=== PATIENT | female | born 1960 | race Two or more races ===

== ENCOUNTER → 2016-11-26 | Day surgery (SDC) | payer BC ==
[~2016-11-26] MED LIST: AMLO10TA2 PO; CYCL10TA2 PO; HYDR25TA9 PO; HYDROmorphone 2 MG/ML VIAL IV PRN; IV RINGERS,LACTATED 1000ML 1,000 ML IV SCH; LIDOCAINE 1% 1 ML SYRINGE. ID PRN; LIDOCAINE 2% PF Vial for OR 5 ML VIAL. ONE; LISI40TA PO; METO25TA9 PO; MORPHINE SULFATE 2 MG/ML DISP.SYRIN. IV PRN; ONDANSETRON PF 4 MG/2 ML VIAL. IV PRN; PROCHLORPERAZINE 10 MG/2 ML VIAL. IV PRN; PROPOFOL 20 ML IV ONE; PROPOFOL 40 ML IV ONE; fentaNYL PF VIAL 100 MCG/2 ML VIAL IV PRN
--- NOTE | 2016-11-26 13:45 | PDOC1 ---
History and Physical Date of Admission Date of Admission DATE: 11/26/16 TIME: 13:40 Source Source: Chart review, Patient History of Present Illness History of Present Illness 56 y/o female here for CRC screening and evaluation of bloating. Does have FH of gastric cancer in multiple family members (3 cousins and grandfather). No other symptoms. Past Medical History Cardiovascular: HTN Past Surgical History Past Surgical History none Family History Family History: Cancer, Coronary Artery Disease, Diabetes, Hypertension Social History Smoke: No ALCOHOL: none Drugs: None Current Medications Current Medications Current Medications Lactated Ringer's 1,000 ml @ 50 mls/hr Q20H IV ; Start 07/20/16 at 17:13; Stop 07/21/16 at 05:12; Status UNV Lactated Ringer's 1,000 ml @ 50 mls/hr Q20H IV ; Start 07/20/16 at 17:13; Stop 07/21/16 at 05:12; Status UNV Ondansetron HCl (Zofran) 4 mg PRN Q6HRS PRN IV NAUSEA/VOMITING; Start 11/26/16 at 13:00; Stop 11/26/16 at 18:00 Fentanyl Citrate (Fentanyl 2ml Vial) 25 mcg PRN Q5MIN PRN IV MILD PAIN; Start 11/26/16 at 13:00; Stop 11/26/16 at 18:00 Fentanyl Citrate (Fentanyl 2ml Vial) 50 mcg PRN Q5MIN PRN IV MODERATE PAIN; Start 11/26/16 at 13:00; Stop 11/26/16 at 18:00 Morphine Sulfate 1 mg PRN Q10MIN PRN IV SEVERE PAIN; Start 11/26/16 at 13:00; Stop 11/26/16 at 18:00 Ringer's Solution 1,000 ml @ 30 mls/hr Q24H IV ; Start 11/26/16 at 12:59; Stop 11/27/16 at 00:58 Lidocaine HCl 2 ml PRN 1X PRN ID PRIOR TO IV START; Start 11/26/16 at 13:00; Stop 11/26/16 at 18:00 Hydromorphone HCl (Dilaudid) 0.5 mg PRN Q10MIN PRN IV SEV PAIN, Second choice; Start 11/26/16 at 13:00; Stop 11/26/16 at 18:00 Prochlorperazine Edisylate (Compazine) 5 mg PACU PRN PRN IV NAUSEA, MRX1; Start 11/26/16 at 13:00; Stop 11/26/16 at 18:00 Ringer's Solution 1,000 ml @ 75 mls/hr [id number] IV ; Start 11/26/16 at 13:15; Stop 11/27/16 at 13:14 Allergies Allergies: Coded Allergies: No Known Drug Allergies (Unverified , 11/26/16) ROS Review of System Otherwise negative. Physical Exam General: Alert, Oriented X3, Cooperative, No acute distress Lungs: Clear to auscultation Heart: S1S2, RRR, no gallops, no murmurs Abdomen: Normal bowel sounds, Soft, No tenderness, No hepatosplenomegaly, No masses Rectal Exam: deferred (to procedure) Extremities: No cyanosis, No edema Skin: No significant lesion Neuro: Normal speech, Strength at 5/5 X4 ext, Normal tone, Sensation intact, Cranial nerves 3-12 NL, Reflexes 2+ Psych/Mental Status: Mental status NL, Mood NL VTE Prophylaxis Ordered VTE Prophylaxis Devices: No VTE Pharmacological Prophylaxi: No Assessment/Plan Assessment/Plan IMP: 1. CRC screening 2. Non-specific bloating/FH gastric cancer in several relatives. PLAN: EGD and colonoscopy. Other pending. MEMO REYNOLDS MD Nov 26, 2016 13:45
--- NOTE | 2016-11-26 14:39 | PDOC4 ---
PROCEDURE Procedure Colon/EGD Indications: Screening/dyspepsia, FH gastric cancer Meds: per anesthesia Findings: ANNITA: normal Mucosa normal to cecum. 2 3-4 mm polyps, mid to distal transverse, biopsied off. Third 3mm polyp, distal descending, likewise removed. IH's on retroflex. E--Less than grade I at 37cm G--Tiny , 3-4 mm, in mid antrum, greater curve. biopsies from antrum. Few pre-pyloric erosions. D--Several shallow erosions, bulb. Second portion OK. Shay. well. IMP: colon polyps Mild reflux Tiny Prepyloric erosions Duodenal erosions. PLAN: 1. Resume home meds, diet. 2. Prilosec OTC or equivalent daily. 3. Await path. 4. F/u office 2 weeks. 5. Repeat any procedures based on path. MEMO REYNOLDS MD Nov 26, 2016 14:39
[2016-11-26 15:25] VITALS: BP 110/70
--- NOTE | 2016-11-27 15:06 | PATHOLOGY ---
PATHOLOGY REPORT * * * * * * * * FINAL DIAGNOSIS: A. Gastric biopsies, antrum: - Chronic gastritis, mild to moderate. B. Colon biopsies, transverse colon polyp: - Tubular adenoma. - Mucosal-associated lymphoid aggregate. C. Colon biopsies, descending colon polyp: - Tubular adenoma. COMMENT: Sections of the gastric biopsy reveal segments of gastric body and gastric antral mucosa. The gastric body mucosa shows mild superficial chronic inflammation. The gastric antral mucosa shows mild to moderate chronic inflammation. An immunoperoxidase stain for Helicobacter is obtained. No Helicobacter organisms are identified. Sections of the transverse colon and descending colon biopsies reveal tubular adenomas showing no high-grade dysplasia or evidence of malignancy. (JPM:mgr; d/t: 11/27/2016) Special Stain Performed: Immunoperoxidase stain for Helicobacter (A1) REPORT ELECTRONICALLY SIGNED BY: Sergio Holly M.D. DATE/TIME: 11/27/2016 15:06 * * * * * * * * GROSS PATHOLOGY: A. Received in formalin labeled "Anette Schumacher, antral biopsy, r/o H. pylori" are multiple segments of powell soft tissue measuring from 0.1 up to 0.4 cm in maximum dimension. The specimen is submitted entirely in cassette A1. B. Received in formalin labeled "transverse colon polyp," are 4 segments of powell soft tissue measuring from less than 0.1 up to 0.3 cm in maximum dimension. The specimen is submitted entirely in cassette B1. C. Received in formalin labeled "descending colon polyp," are multiple segments of powell soft tissue measuring from 0.1 up to 0.3 cm in maximum dimension. The specimen is submitted entirely in cassette C1. (JPM; 11/26/16) INITIAL CPT CODE(S): A; 76082, 36556 B; 90414 C; 95496 Professional services performed by [facility] at [facility] [address] [place] [address] Technical services performed by [facility] at [address] [place] [address], [address], [place] [address]. SPECIMEN(S) RECEIVED: A.Antral biopsy, r/o H. Pylori B.Transverse colon polyp C.Descending colon polyp CLINICAL HISTORY: Dyspepsia, CRCS PATIENT: ANETTE SCHUMACHER /AGE: 611/24/1960 (Age: 56) PATIENT #: [id number] ALT CASE #: SPECIMEN COLLECTION DATE: 11/26/2016 SPECIMEN RECEIVED DATE: 11/26/2016 [facility] - [id number] [place] [address] - PHONE: [phone] * * * END OF REPORT * * *
== END | disposition home or self-care (01) ==
LOC: ENDOS 13:01
PROVIDERS: ATTEND Internal Medicine Gastroenterology
DX: Z12.11 Encounter for screening for malignant neoplasm of colon (principal); D12.3 Benign neoplasm of transverse colon; D12.4 Benign neoplasm of descending colon; K64.8 Other hemorrhoids; K21.0 Gastro-esophageal reflux disease with esophagitis; K25.9 Gastric ulcer, unspecified as acute or chronic, without hemorrhage or perforation; K31.89 Other diseases of stomach and duodenum; K26.9 Duodenal ulcer, unspecified as acute or chronic, without hemorrhage or perforation; Z80.0 Family history of malignant neoplasm of digestive organs; I10 Essential (primary) hypertension; E66.9 Obesity, unspecified; Z68.43 Body mass index [BMI] 50.0-59.9, adult; Z87.39 Personal history of other diseases of the musculoskeletal system and connective tissue
CPT/HCPCS: 43239; 45380; 88305; 88342; J2704